=== PATIENT | female | born 1995 | race Caucasian/White ===

== ENCOUNTER → 2018-11-19 | Outpatient (CLI) | payer BC, OTHER | LOC: YHH 11:19 ==

== ENCOUNTER 2021-12-14 11:40 | Inpatient (IN) | payer OTHER ==
[2021-12-14] MEDS ORDERED: SODIUM PHOSPHATE/NA BIPHOS 133 ML ENEMA RC PRN (12:56)
[2021-12-14] MEDS ORDERED: DINOPROSTONE 10 MG VAGINAL SUPPOSITORY VG ONE (13:30)
[2021-12-14 13:34] LABS: PHENCYCLIDINE,URINE NEGATIVE (NEGATIVE); URINE BENZODIAZEPINES NEGATIVE (NEGATIVE)
[2021-12-14 13:35] LABS: COCAINE, UR NEGATIVE (NEGATIVE); METHADONE, UR NEGATIVE (NEGATIVE); OPIATES, URI NEGATIVE (NEGATIVE); URINE BARBITURATES NEGATIVE (NEGATIVE)
[2021-12-14 13:41] LABS: URINE AMPHETAMINES NEGATIVE (NEGATIVE)
[2021-12-14 13:56] VITALS: BMI 23.1
[2021-12-14 14:07] LABS: BASO % 0.3 % (0-2.0); EOS % 1.3 % (0-4.5); HEMATOCRIT 35.1 % (32.4-45.2); HEMOGLOBIN 12.2 GM/dL (10.7-15.3); LYMPH % 16.6 % (8-40); MCH 31.9 pg (25.7-33.7); MCHC 34.9 g/dl (32.0-36.0); MEAN CELL VOLUME 91.5 fl (80-96); MEAN PLT VOLUME 8.3 fl (7.5-11.1); MONO % 6.9 % (3.8-10.2); NEUT % 74.9 % (42.8-82.8); PLATELET COUNT 236 10^3/uL (134-434); RBC 3.83 M/mm3 (3.60-5.2); RDW 12.9 % (11.6-15.6)
[2021-12-14 14:11] LABS: INR 0.94 (0.83-1.09); PROTHROMBIN TIME (PATIENT) 10.8 SEC (9.7-13.0)
[2021-12-14 14:13] LABS: ACTIVATED PTT 26.9 SECONDS (25.2-36.5)
[2021-12-14 14:24] LABS: BLOOD UREA NITROGEN 11.4 mg/dL (7-18)
[2021-12-14 14:28] LABS: CREATININE 0.6 mg/dL (0.55-1.3)
[2021-12-14 16:14] LABS: ALBUMIN 2.4 g/dl (3.4-5.0); CALCIUM 8.8 mg/dL (8.5-10.1)
[2021-12-14 16:17] LABS: CREATININE 0.6 mg/dL (0.55-1.3)
[2021-12-14 16:19] LABS: BILIRUBIN,TOTAL 0.2 mg/dL (0.2-1)
[2021-12-14] MEDS ORDERED: BUTORPHANOL TARTRATE 1 MG/ML VIAL IVPUSH ONE (21:25)
[2021-12-14] MEDS ORDERED: PROMETHAZINE HCL 25 MG/1 ML VIAL IVPUSH ONE (21:25)
[2021-12-15] MEDS: DEXTROSE 5%-LACTATED RINGERS 1,000 ML IV SCH ×3 (01:00→23:45)
[2021-12-15] MEDS ORDERED: OXYTOCIN 30 UNITS in 0.9% NS 30 UNIT/500 ML INFUS.BAG IVPB ONE ×2 (02:58→23:38)
[2021-12-15] MEDS ORDERED: AMPICILLIN SODIUM 2 GM VIAL ONE (02:58)
[2021-12-15] MEDS ORDERED: AMPICILLIN - 2 GM in SODIUM CHLORIDE 100 ML IVPB ONE (03:00)
[2021-12-15] MEDS ORDERED: OXYTOCIN 30 UNITS in 0.9% NS 30 UNIT/500 ML INFUS.BAG IVPB SCH ×2 (03:00→22:15)
[2021-12-15] MEDS: AMPICILLIN - 1 GM in SODIUM CHLORIDE 100 ML IVPB SCH ×4 (06:15→18:19)
[2021-12-15] MEDS ORDERED: AMPICILLIN SODIUM 1 GM VIAL ONE (06:19)
[2021-12-15] MEDS ORDERED: DINOPROSTONE 10 MG VAGINAL SUPPOSITORY VG ONE (10:45)
[2021-12-15] MEDS ORDERED: ONDANSETRON 4 MG TABLET PO ONE (15:17)
[2021-12-15] MEDS ORDERED: ONDANSETRON 4 MG/2 ML VIAL IVPB ONE (15:29)
[2021-12-15] MEDS ORDERED: ONDANSETRON 4 MG/2 ML VIAL ONE (15:33)
[2021-12-16] MEDS ORDERED: CITRIC ACID/SODIUM CITRATE 30 ML UNIT-DOSE CUP PO ONE (05:56)
[2021-12-16] MEDS ORDERED: ELECTROLYTE-148 SOLN 1,000 ML IV SCH (06:00)
[2021-12-16] MEDS ORDERED: OXYTOCIN 20 UNITS in 0.9% NS 20 UNIT/1,000 ML INFUS.BAG IV ONE (08:14)
[2021-12-16] MEDS ORDERED: morphine SULFATE/PF 1 MG/2 ML (2cc Syringe - QUVA) ONE (08:16)
[2021-12-16] MEDS ORDERED: OXYTOCIN 30 UNITS in 0.9% NS 30 UNIT/500 ML INFUS.BAG IVPB ONE (08:24)
[2021-12-16] MEDS ORDERED: ceFAZolin SODIUM 1 GM VIAL ONE (08:29)
[2021-12-16] MEDS ORDERED: ONDANSETRON 4 MG/2 ML VIAL ONE (08:30)
[2021-12-16] MEDS ORDERED: ONDANSETRON 4 MG/2 ML VIAL IVPUSH PRN (08:53)
[2021-12-16] MEDS ORDERED: KETOROLAC TROMETHAMINE 30 MG/1 ML VIAL ONE (08:55)
[2021-12-16] MEDS ORDERED: ACETAMINOPHEN 1000 MG/100 ML BAG IVPB PRN (08:55)
[2021-12-16] MEDS ORDERED: DEXAMETHASONE SOD PHOSPHATE 4 MG/1 ML VIAL ONE (08:55)
[2021-12-16] MEDS ORDERED: METHYLERGONOVINE MALEATE 0.2 MG/1 ML AMP IM PRN (10:11)
[2021-12-16 10:44] LABS: CORD HCO3 26.1 mmHg (20-29); CORD PCO2 60.7 mmHg (30-78); CORD pH 7.252 (7.14-7.44)
[2021-12-16 10:47] LABS: CORD HCO3 28.2 mmHg (20-29); CORD PCO2 55.6 mmHg (30-78); CORD pH 7.323 (7.14-7.44)
[2021-12-16] MEDS: IBUPROFEN 800 MG/8 ML IJ IVPB PRN (12:23)
[2021-12-16] MEDS: CEFAZOLIN 1 GM in DEXTROSE 5%-WATER 100 ML IVPB SCH (17:25)
[2021-12-16] MEDS ORDERED: CEFAZOLIN 1 GM/D5W 50 ML IVPB SCH (18:00)
[2021-12-16] MEDS: OXYTOCIN 20 UNITS in 0.9% NS 20 UNIT/1,000 ML INFUS.BAG IV SCH (18:42)
[2021-12-16] MEDS: SIMETHICONE 80 MG TAB.CHEW (FP) PO PRN (21:16)
[2021-12-16] MEDS: oxyCODONE HCL 5 MG TABLET PO PRN (23:57)
[2021-12-17] MEDS: CEFAZOLIN 1 GM in DEXTROSE 5%-WATER 100 ML IVPB SCH ×2 (02:12→09:30)
[2021-12-17] MEDS: IBUPROFEN 800 MG/8 ML IJ IVPB PRN (03:16)
[2021-12-17] MEDS: SIMETHICONE 80 MG TAB.CHEW (FP) PO PRN ×3 (08:47→19:13)
[2021-12-17] MEDS: ACETAMINOPHEN 325 MG TABLET (FP) PO PRN (08:47)
[2021-12-17] MEDS: ENOXAPARIN NA (PORCINE) 40 MG/0.4 ML DISP.SYRIN SQ SCH (09:30)
[2021-12-17] MEDS: PRENATAL VITAMINS W/ FOLIC ACID TABLET (FP) PO SCH (09:30)
[2021-12-17] MEDS ORDERED: BISACODYL 10 MG SUPP.RECT RC PRN (10:11)
[2021-12-17 11:23] LABS: BASO % 0.4 % (0-2.0); HEMATOCRIT 31.9 % (32.4-45.2); HEMOGLOBIN 11.3 GM/dL (10.7-15.3); LYMPH % 23.2 % (8-40); MCHC 35.5 g/dl (32.0-36.0); MEAN CELL VOLUME 90.4 fl (80-96); MEAN PLT VOLUME 8.1 fl (7.5-11.1); MONO % 8.3 % (3.8-10.2); NEUT % 67.1 % (42.8-82.8); PLATELET COUNT 218 10^3/uL (134-434); RBC 3.53 M/mm3 (3.60-5.2); WHITE BLOOD COUNT 9.4 K/mm3 (4.0-10.0)
[2021-12-17] MEDS: oxyCODONE HCL 5 MG TABLET PO PRN ×3 (13:34→21:29)
[2021-12-17] MEDS: IBUPROFEN 600 MG TABLET (FP) PO PRN (14:34)
[2021-12-17] MEDS: SENNOSIDES/DOCUSATE COMBO (SENNA PLUS) TABLET (UD) PO PRN (21:28)
[2021-12-17] MEDS: FERROUS SO4 325 MG TABLET (FP) PO SCH (22:28)
[2021-12-18] MEDS: SIMETHICONE 80 MG TAB.CHEW (FP) PO PRN ×2 (01:09→19:36)
[2021-12-18] MEDS: IBUPROFEN 600 MG TABLET (FP) PO PRN ×3 (01:09→21:50)
[2021-12-18] MEDS: ACETAMINOPHEN 325 MG TABLET (FP) PO PRN ×2 (07:48→12:58)
[2021-12-18] MEDS: PRENATAL VITAMINS W/ FOLIC ACID TABLET (FP) PO SCH (09:38)
[2021-12-18] MEDS: ENOXAPARIN NA (PORCINE) 40 MG/0.4 ML DISP.SYRIN SQ SCH (09:39)
[2021-12-18] MEDS: FERROUS SO4 325 MG TABLET (FP) PO SCH ×2 (09:39→21:50)
[2021-12-18] MEDS: oxyCODONE HCL 5 MG TABLET PO PRN (19:36)
[2021-12-18] MEDS: OXYTOCIN 20 UNITS in 0.9% NS 20 UNIT/1,000 ML INFUS.BAG IV SCH (21:04)
[2021-12-18] MEDS: AMPICILLIN - 1 GM in SODIUM CHLORIDE 100 ML IVPB SCH (21:09)
[2021-12-18] MEDS: SENNOSIDES/DOCUSATE COMBO (SENNA PLUS) TABLET (UD) PO PRN (21:50)
[2021-12-19] MEDS: SIMETHICONE 80 MG TAB.CHEW (FP) PO PRN ×2 (02:46→22:01)
[2021-12-19] MEDS: oxyCODONE HCL 5 MG TABLET PO PRN ×2 (02:46→22:01)
[2021-12-19 08:04] LABS: BASO % 0.5 % (0-2.0); EOS % 3.2 % (0-4.5); HEMATOCRIT 36.8 % (32.4-45.2); HEMOGLOBIN 12.5 GM/dL (10.7-15.3); MCH 30.6 pg (25.7-33.7); MCHC 33.9 g/dl (32.0-36.0); MEAN CELL VOLUME 90.3 fl (80-96); MEAN PLT VOLUME 7.9 fl (7.5-11.1); MONO % 6.7 % (3.8-10.2); NEUT % 64.6 % (42.8-82.8); PLATELET COUNT 266 10^3/uL (134-434); RBC 4.07 M/mm3 (3.60-5.2); WHITE BLOOD COUNT 9.5 K/mm3 (4.0-10.0)
[2021-12-19] MEDS: IBUPROFEN 600 MG TABLET (FP) PO PRN ×3 (10:11→18:21)
[2021-12-19] MEDS: PRENATAL VITAMINS W/ FOLIC ACID TABLET (FP) PO SCH (14:07)
[2021-12-19] MEDS: ENOXAPARIN NA (PORCINE) 40 MG/0.4 ML DISP.SYRIN SQ SCH (14:07)
[2021-12-19] MEDS: FERROUS SO4 325 MG TABLET (FP) PO SCH ×2 (14:07→21:07)
[2021-12-19] MEDS: SENNOSIDES/DOCUSATE COMBO (SENNA PLUS) TABLET (UD) PO PRN (21:07)
[2021-12-20 00:21] VITALS: TEMP 98
[2021-12-20] MEDS: SIMETHICONE 80 MG TAB.CHEW (FP) PO PRN ×2 (03:24→17:16)
[2021-12-20] MEDS: IBUPROFEN 600 MG TABLET (FP) PO PRN ×3 (03:24→17:16)
[2021-12-20] MEDS: PRENATAL VITAMINS W/ FOLIC ACID TABLET (FP) PO SCH (10:00)
[2021-12-20] MEDS: ENOXAPARIN NA (PORCINE) 40 MG/0.4 ML DISP.SYRIN SQ SCH (10:00)
[2021-12-20] MEDS: FERROUS SO4 325 MG TABLET (FP) PO SCH (10:00)
[2021-12-20 13:17] VITALS: BP 139/91; PULSE 90; RESP 20
== END 2021-12-20 18:15 | disposition home or self-care (01) | DRG 540 ==
LOC: JDEL 11:40 → JLDR 12:15 → J3W 12-16 11:25
PROVIDERS: ADMIT Obstetrics & Gynecology; ATTEND Obstetrics & Gynecology
PROC: 10D00Z1 Extraction of Products of Conception, Low, Open Approach (ICD-10-PCS; principal; 2021-12-16)
PROC: 3E0P7VZ Introduction of Hormone into Female Reproductive, Via Natural or Artificial Opening (ICD-10-PCS; 2021-12-16)
DX: O36.5930 Maternal care for other known or suspected poor fetal growth, third trimester, not applicable or unspecified (principal); F12.90 Cannabis use, unspecified, uncomplicated; O61.9 Failed induction of labor, unspecified; O99.824 Streptococcus B carrier state complicating childbirth; Z3A.37 37 weeks gestation of pregnancy; Z37.0 Single live birth
CPT/HCPCS: 36415; 36600; 80048; 80053; 80307; 82570; 82803; 84156; 84550; 85025; 85610; 85730; 86780; 86850; 86900; 86901; 88307-TC; C9803-CS; U0003; U0005

== ENCOUNTER 2021-12-22 20:01 | Emergency (ER) | payer OTHER ==
[2021-12-22 20:07] VITALS: BP 137/88; PULSE 72; RESP 18; BMI 22.6
== END 2021-12-22 21:58 | disposition home or self-care (01) ==
LOC: JER 20:01 → JERFT 20:01
DX: Z11.52 Encounter for screening for COVID-19 (principal)
CPT/HCPCS: 0241U-QW; 99283-25